=== PATIENT | female | born 1990 | race Caucasian/White ===

== ENCOUNTER 2019-12-25 10:06 | Inpatient (IN) ==
[2019-12-25 09:08] LABS: Protein/Creatinine Ratio,Urine 0.3 mg/mg (0.00-0.20)
[2019-12-25 09:09] LABS: Basophils % 0.2 %; Eosinophils # 0.1 K/mcL (0.0-0.6); Eosinophils % 0.6 %; Hematocrit 37.6 % (35.3-44.9); Hemoglobin 12.2 g/dL (11.5-15.4); Immature Granulocytes % 0.8 % (0-4); Lymphocytes # 1.5 K/mcL (0.6-4.6); Lymphocytes % 10.1 %; Mean Corpuscular HGB Conc 32.4 g/dL (31.6-35.5); Mean Corpuscular Hemoglobin 31.4 pg (28.0-33.3); Mean Corpuscular Volume 96.7 fL (83.0-100.0); Mean Platelet Volume 11.2 fL (9.4-12.4); Monocytes # 0.5 K/mcL (0.0-1.3); Monocytes % 3.5 %; Neutrophils # 12.2 K/mcL (1.6-8.9); Platelet Count 241 K/mcL (140-400); Red Blood Count 3.89 M/mcL (3.82-4.97); Red Cell Distribution Width 13.5 % (11.5-14.5); Segmented Neutrophils % 84.8 %; White Blood Count 14.4 K/mcL (4.3-11.1)
[2019-12-25 09:29] LABS: BUN/Creatinine Ratio 15 (6-26); Blood Urea Nitrogen 8 mg/dL (6-20)
[2019-12-25 09:30] LABS: Alanine Aminotransferase 12 Units/L (7-52); Aspartate Amino Transferase 14 Units/L (13-39); Lactate Dehydrogenase 185 Units/L (140-271); eGFR For African Americans > 60 (> 60); eGFR For Non-African Americans > 60 (> 60)
[2019-12-25] MEDS: Oxytocin 20 units/ LR 1000 mL 20 UNIT/1,000 ML BAG IVC SCH ×2 (10:00→17:22)
[2019-12-25 10:06] LABS: Adenovirus Not Detected (Not Detect); Bordetella Pertussis Not Detected (Not Detect); Chlamydophila pneumoniae Not Detected (Not Detect); Coronavirus 229E Not Detected (Not Detect); Coronavirus HKU1 Not Detected (Not Detect); Coronavirus NL63 Not Detected (Not Detect); Coronavirus OC43 Not Detected (Not Detect); Human Metapneumovirus Not Detected (Not Detect); Human Rhinovirus/Enterovirus Not Detected (Not Detect); Influenza A Subtype 2009 H1 Not Detected (Not Detect); Influenza B Not Detected (Not Detect); Mycoplasma pneumoniae Not Detected (Not Detect); Parainfluenza Virus 1 Not Detected (Not Detect); Parainfluenza Virus 2 Not Detected (Not Detect); Parainfluenza Virus 3 Not Detected (Not Detect); Parainfluenza Virus 4 Not Detected (Not Detect); Respiratory Syncytial Virus Not Detected (Not Detect); SARS-CoV-2 Not Detected (Not Detect)
[~2019-12-25 10:06] MED LIST: *HR* FentaNYL (PF) 100 MCG/2 ML VIAL ONE; *HR* FentaNYL (PF) 250 MCG/5 ML VIAL ONE; *HR* HYDROMORPHONE 2 MG/ML VIAL ONE; *HR* Midazolam HCl 2 MG/2 ML VIAL ONE; *HR* Oxytocin 10 UNIT/ML VIAL IM ONE; CeFAZolin 2,000 MG/50 ML BAG IVPB ONE; Dexamethasone 4 MG/ML VIAL ONE; Ketamine *HR* 500 MG/10 ML MDV ONE; Ketorolac 30 MG/ML VIAL ONE; Lidocaine -MPF 2% 5 ML VIAL ONE; Ondansetron 4 MG/2 ML VIAL ONE; Oxytocin 20 units/ LR 1000 mL 20 UNIT/1,000 ML BAG IVC ONE; Ringers Solution, Lactated 1,000 ML ONE
[2019-12-25] MEDS ORDERED: Ondansetron 4 MG/2 ML VIAL IVP PRN (10:13)
[2019-12-25] MEDS ORDERED: Sennosides 8.6 MG TABLET PO PRN (10:13)
[2019-12-25] MEDS ORDERED: Metoclopramide 10 MG/2 ML VIAL IVP PRN (10:13)
[2019-12-25] MEDS ORDERED: Acetaminophen IV 1,000 MG/100 ML INFUS..BTL IVPB ONE (10:27)
[2019-12-25] MEDS: *HR* OxyCODONE/APAP 5/325 TABLET PO PRN ×3 (11:38→21:00)
[2019-12-25] MEDS: metroNIDAZOLE 500 MG TABLET PO SCH ×3 (11:38→21:00)
[2019-12-25] MEDS: CeFAZolin 2,000 MG/50 ML BAG IVPB SCH ×3 (11:39→23:07)
[2019-12-25] MEDS: Prenatal Vit/FA 1 EACH TABLET PO SCH (11:40)
[2019-12-25 12:22] LABS: Amphetamine Screen,Urine Positive ng/mL (Cutoff=1000); Barbiturate Screen,Urine Negative ng/mL (Cutoff=200); Benzodiazepines Screen,Urine Negative ng/mL (Cutoff=200); Cannabinoid Screen,Urine Positive ng/mL (Cutoff = 50); Cocaine Screen,Urine Negative ng/mL (Cutoff= 300); Opiate Screen,Urine Negative ng/mL (Cutoff=300); Phencyclidine Screen,Urine Negative ng/mL (Cutoff=25)
[2019-12-25 14:30] LABS: Hematocrit 30.2 % (35.3-44.9); Mean Corpuscular HGB Conc 33.1 g/dL (31.6-35.5); Mean Corpuscular Hemoglobin 31.5 pg (28.0-33.3); Mean Corpuscular Volume 95.3 fL (83.0-100.0); Mean Platelet Volume 10.9 fL (9.4-12.4); Platelet Count 210 K/mcL (140-400); Red Blood Count 3.17 M/mcL (3.82-4.97); Red Cell Distribution Width 12.9 % (11.5-14.5); White Blood Count 16.1 K/mcL (4.3-11.1)
[2019-12-25 14:57] LABS: INR 0.9; Prothrombin Time 10.5 Seconds (9.4-12.1)
[2019-12-25 14:59] LABS: Activated Partial Thrombo Time 25.1 Seconds (26.0-36.0)
[2019-12-25] MEDS: Simethicone 80 MG TAB.CHEW PO PRN ×2 (16:41→23:06)
[2019-12-25] MEDS: Ibuprofen 600 MG TABLET PO PRN ×2 (16:41→23:06)
[2019-12-25] MEDS ORDERED: miSOPROStoL 100 MCG TABLET RC ONE (17:04)
[2019-12-26] MEDS: *HR* OxyCODONE/APAP 5/325 TABLET PO PRN ×3 (02:13→21:58)
[2019-12-26] MEDS: Ibuprofen 600 MG TABLET PO PRN ×3 (06:09→21:01)
[2019-12-26 07:17] LABS: Basophils % 0.2 %; Eosinophils % 0.3 %; Hematocrit 31.3 % (35.3-44.9); Hemoglobin 10.2 g/dL (11.5-15.4); Immature Granulocytes % 0.7 % (0-4); Lymphocytes # 2.3 K/mcL (0.6-4.6); Lymphocytes % 22.4 %; Mean Corpuscular HGB Conc 32.6 g/dL (31.6-35.5); Mean Corpuscular Hemoglobin 31.3 pg (28.0-33.3); Mean Platelet Volume 10.7 fL (9.4-12.4); Monocytes # 0.6 K/mcL (0.0-1.3); Monocytes % 5.8 %; Neutrophils # 7.2 K/mcL (1.6-8.9); Platelet Count 223 K/mcL (140-400); Red Blood Count 3.26 M/mcL (3.82-4.97); Red Cell Distribution Width 13.2 % (11.5-14.5); Segmented Neutrophils % 70.6 %; White Blood Count 10.2 K/mcL (4.3-11.1)
[2019-12-26] MEDS: metroNIDAZOLE 500 MG TABLET PO SCH ×3 (09:43→20:46)
[2019-12-26] MEDS: Prenatal Vit/FA 1 EACH TABLET PO SCH (09:43)
[2019-12-26] MEDS: Simethicone 80 MG TAB.CHEW PO PRN (15:14)
[2019-12-27] MEDS: *HR* OxyCODONE/APAP 5/325 TABLET PO PRN ×2 (06:41→20:45)
[2019-12-27] MEDS: Ibuprofen 600 MG TABLET PO PRN ×2 (06:41→20:45)
[2019-12-27] MEDS: Simethicone 80 MG TAB.CHEW PO PRN (09:03)
[2019-12-27] MEDS: Prenatal Vit/FA 1 EACH TABLET PO SCH (09:03)
[2019-12-28 08:00] VITALS: BP 137/84
[2019-12-28] MEDS: Prenatal Vit/FA 1 EACH TABLET PO SCH (08:30)
[2019-12-28] MEDS: *HR* OxyCODONE/APAP 5/325 TABLET PO PRN (11:08)
== END 2019-12-28 17:05 | disposition home or self-care (01) | DRG 540 ==
LOC: 1NENULAB → 1NENUOBS 10:06
PROVIDERS: ADMIT Advanced Practice Midwife; ATTEND Advanced Practice Midwife